=== PATIENT | female | born 1990 | race Caucasian/White ===

== ENCOUNTER → 2017-03-03 | Outpatient (REF) | payer BC ==
[~2017-03-03] MED LIST: IBUP80TA PO; STUACAP PO; TYLE167L PO
[2017-03-03 13:16] LABS: MEAN CORPUSCULAR HEMOGLOBIN 28.9 pg (27.0-33.0); MEAN CORPUSCULAR HGB CONC 33.6 g/dl (32.0-36.5); MEAN CORPUSCULAR VOLUME 86.1 fl (80.0-96.0); PLATELET COUNT, AUTOMATED 265 10^3/uL (150-450); RED CELL DISTRIBUTION WIDTH 13.2 % (11.5-14.5); WHITE BLOOD COUNT 10.3 10^3/uL (4.0-10.0)
[2017-03-03 13:55] LABS: HCG, SERUM QUANTITATIVE 140501 MIU/ML
[2017-03-04 10:32] LABS: HBsAg Prenatal NEGATIVE (NEGATIVE)
== END ==
LOC: M LAB REF 12:42
PROVIDERS: ATTEND Obstetrics & Gynecology
DX: O36.80X0 Pregnancy with inconclusive fetal viability, not applicable or unspecified (principal)

== ENCOUNTER → 2017-07-19 | Outpatient (CLI) | payer BC ==
[2017-07-19 11:43] LABS: HEMOGLOBIN 8.9 g/dl (12.0-16.0); MEAN CORPUSCULAR HEMOGLOBIN 24.6 pg (27.0-33.0); MEAN CORPUSCULAR HGB CONC 30.7 g/dl (32.0-36.5); MEAN CORPUSCULAR VOLUME 80.1 fl (80.0-96.0); PLATELET COUNT, AUTOMATED 325 10^3/uL (150-450); RED BLOOD COUNT 3.62 10^6/uL (4.00-5.40); RED CELL DISTRIBUTION WIDTH 14.2 % (11.5-14.5); WHITE BLOOD COUNT 11.4 10^3/uL (4.0-10.0)
[2017-07-19 12:12] LABS: GLUCOSE CHALLENGE TEST 1 HOUR 142 MG/DL (LESS THAN 140)
== END ==
LOC: M LAB 10:01
DX: O30.042 Twin pregnancy, dichorionic/diamniotic, second trimester (principal); Z3A.00 Weeks of gestation of pregnancy not specified
CPT/HCPCS: 82950

== ENCOUNTER → 2017-07-25 | Outpatient (CLI) | payer BC ==
[2017-07-25 09:01] LABS: GLUCOSE, FASTING 81 MG/DL (LESS THAN 95)
[2017-07-25 09:45] LABS: 1 HR GLUCOSE 155 MG/DL (LESS THAN 180)
[2017-07-25 11:29] LABS: 2 HR GLUCOSE 126 MG/DL (LESS THAN 155)
[2017-07-25 12:52] LABS: 3 HR GLUCOSE 122 MG/DL (LESS THAN 140)
== END ==
LOC: M LAB 08:00
DX: O99.810 Abnormal glucose complicating pregnancy (principal)
CPT/HCPCS: 82951

== ENCOUNTER → 2017-08-16 | Outpatient (CLI) | payer BC | LOC: M RAD 10:38 | DX: O30.043 Twin pregnancy, dichorionic/diamniotic, third trimester (principal) | CPT/HCPCS: 76820 ==

== ENCOUNTER → 2017-09-06 | Outpatient (CLI) | payer BC ==
[2017-09-06 15:02] LABS: TOTAL VOLUME, URINE 2300 ML
[2017-09-06 15:12] LABS: HEMATOCRIT 29.3 % (36.0-47.0); MEAN CORPUSCULAR HGB CONC 30.7 g/dl (32.0-36.5); MEAN CORPUSCULAR VOLUME 78.1 fl (80.0-96.0); PLATELET COUNT, AUTOMATED 265 10^3/uL (150-450); RED BLOOD COUNT 3.75 10^6/uL (4.00-5.40); RED CELL DISTRIBUTION WIDTH 17.3 % (11.5-14.5); WHITE BLOOD COUNT 9.1 10^3/uL (4.0-10.0)
[2017-09-06 15:38] LABS: ALT/SGPT 16 U/L (12-78); AST/SGOT 26 U/L (7-37); BILIRUBIN,TOTAL 0.2 MG/DL (0.2-1.0); GLOMERULAR FILTRATION RATE > 60.0 (>60); LDH LACTATE DEHYDROGENASE 141 U/L (84-246); URIC ACID 5.6 MG/DL (2.6-6.0)
[2017-09-06 15:40] LABS: CREATININE 24 HOUR, URINE 1451.3 MG/24HR (600-1800); CREATININE, URINE 63.1 MG/DL; TOTAL PROTEIN 24 HOUR URINE 579.6 MG/24HR (50-150); URINE TOTAL PROTEIN 25.2 MG/DL (0-12)
== END ==
LOC: M LAB 14:43
DX: O30.043 Twin pregnancy, dichorionic/diamniotic, third trimester (principal); R03.0 Elevated blood-pressure reading, without diagnosis of hypertension
CPT/HCPCS: 84460

== ENCOUNTER 2017-09-12 15:37 | Inpatient (IN) | payer BC ==
[~2017-09-12 15:37] MED LIST changes: +BICITRA 30ML SOLN UDC PO; -IBUP80TA PO; -STUACAP PO; -TYLE167L PO
[2017-09-12] MEDS: LR 300 ML IV (16:55)
[2017-09-12 16:58] LABS: HEMOGLOBIN 9.7 g/dl (12.0-15.5); MEAN CORPUSCULAR HEMOGLOBIN 24.4 pg (27.0-33.0); MEAN CORPUSCULAR HGB CONC 31.3 g/dl (32.0-36.5); MEAN CORPUSCULAR VOLUME 78.1 fl (80.0-96.0); PLATELET COUNT, AUTOMATED 244 10^3/uL (150-450); RED BLOOD COUNT 3.97 10^6/uL (4.00-5.40); RED CELL DISTRIBUTION WIDTH 18.7 % (11.5-14.5)
[2017-09-12 17:26] LABS: ALT/SGPT 20 U/L (12-78); AST/SGOT 27 U/L (7-37); BILIRUBIN,TOTAL 0.4 MG/DL (0.2-1.0); CREATININE FOR GFR 0.49 MG/DL (0.55-1.30); GLOMERULAR FILTRATION RATE > 60.0 (>60); LDH LACTATE DEHYDROGENASE 173 U/L (84-246); URIC ACID 5.4 MG/DL (2.6-6.0)
[2017-09-12] MEDS: LR 1,000 ML IV ×3 (18:31→21:15)
[2017-09-12] MEDS: ERYTHROMYCIN LACTOBIONATE INJ 500 MG in NS 250 ML IV (19:20)
[2017-09-12] MEDS ORDERED: MORPHINE PRES-FREE INJ 10 MG/10 ML VIAL (J2274) As Ordered (19:34)
[2017-09-12] MEDS ORDERED: OXYTOCIN INJ 10 UNITS/ML VIAL (J2590) As Ordered ×2 (19:37)
[2017-09-12] MEDS ORDERED: ONDANSETRON 4MG/2ML VIAL (J2405) As Ordered (19:54)
[2017-09-12] MEDS ORDERED: METOCLOPRAMIDE INJ 10MG/2ML VIAL (J2765) IV ×2 (20:06→21:15)
[2017-09-12] MEDS ORDERED: NALOXONE INJ 0.4 MG/1 ML VIAL (J2310) IV ×2 (20:06)
[2017-09-12] MEDS ORDERED: ONDANSETRON 4MG/2ML VIAL (J2405) IV ×2 (20:06→21:15)
[2017-09-12] MEDS ORDERED: NALBUPHINE HCL 10 MG/ML AMP (J2300) IV (20:06)
[2017-09-12] MEDS ORDERED: dexameTHASONE 4 MG/ML 1ML VIAL (J1100) As Ordered (20:12)
[2017-09-12] MEDS ORDERED: PHENYLephrine HCL 500 MCG/5 ML (100MCG/ML) SYRINGE (J2370) As Ordered (20:12)
[2017-09-12] MEDS ORDERED: KETOROLAC 60 MG/2 ML VIAL (J1885) As Ordered (20:24)
[2017-09-12 20:56] LABS: CORD GAS ABE A -2.9; CORD GAS HCO3 A 24.4 MEQ/L; CORD GAS O2 SAT A < 15.0 %; CORD GAS PCO2 A 51.5 mmHg; CORD GAS PH A 7.294 UNITS; CORD GAS PO2 A 10.2 mmHg
[2017-09-12 20:58] LABS: CORD GAS ABE V -3.2; CORD GAS HCO3 V 22.2 MEQ/L; CORD GAS O2 SAT V 42.1 %; CORD GAS PCO2 V 41.2 mmHg; CORD GAS PO2 V 17.9 mmHg; CORD GAS SBC V 20.4 MEQ/L; CORD GAS TCO2 V 23.5 MEQ/L
[2017-09-12] MEDS: KETOROLAC 30 MG/ML VIAL (J1885) IV ×2 (21:00→23:02)
[2017-09-12] MEDS ORDERED: DOCUSATE SODIUM 100 MG CAP PO (21:00)
[2017-09-12 21:04] LABS: CORD GAS ABE V -4.8; CORD GAS HCO3 V 20.9 MEQ/L; CORD GAS PCO2 V 41.1 mmHg; CORD GAS PH V 7.324 UNITS; CORD GAS TCO2 V 22.2 MEQ/L
[2017-09-12 21:09] LABS: CORD GAS ABE A -3.7; CORD GAS HCO3 A 23.3 MEQ/L; CORD GAS O2 SAT A 17.6 %; CORD GAS PCO2 A 49.1 mmHg; CORD GAS PH A 7.295 UNITS; CORD GAS PO2 A 12.6 mmHg; CORD GAS SBC A 19.3 MEQ/L; CORD GAS TCO2 A 24.9 MEQ/L
[2017-09-12] MEDS ORDERED: fentaNYL 100 MCG/2 ML INJECTION (J3010) IV (21:15)
[2017-09-13] MEDS: KETOROLAC 30 MG/ML VIAL (J1885) IV ×3 (02:56→15:00)
[2017-09-13] MEDS: LR 1,000 ML IV ×2 (04:54→12:54)
[2017-09-13] MEDS: PRENATAL VITAMINS CHEWABLE TABLET PO (09:06)
[2017-09-13 09:54] LABS: HEMATOCRIT 28.4 % (36.0-47.0); HEMOGLOBIN 8.9 g/dl (12.0-15.5); MEAN CORPUSCULAR HEMOGLOBIN 24.4 pg (27.0-33.0); MEAN CORPUSCULAR HGB CONC 31.3 g/dl (32.0-36.5); MEAN CORPUSCULAR VOLUME 77.8 fl (80.0-96.0); PLATELET COUNT, AUTOMATED 260 10^3/uL (150-450); RED BLOOD COUNT 3.65 10^6/uL (4.00-5.40); RED CELL DISTRIBUTION WIDTH 18.6 % (11.5-14.5); WHITE BLOOD COUNT 16.7 10^3/uL (4.0-10.0)
[2017-09-13] MEDS: MEASLES,MUMPS,RUBELLA VACCINE INJ (MMR-II) (90707) SC (15:23)
[2017-09-13] MEDS: RHOGAM 300 MCG (1500 IU) INJ (J2790) IM (15:23)
[2017-09-13] MEDS: PERCOCET 5MG/325MG TAB PO (23:09)
[2017-09-13] MEDS: IBUPROFEN 800 MG TAB PO (23:09)
[2017-09-14] MEDS: IBUPROFEN 800 MG TAB PO ×3 (06:30→23:16)
[2017-09-14] MEDS: PRENATAL VITAMINS CHEWABLE TABLET PO (08:15)
[2017-09-14] MEDS: PERCOCET 5MG/325MG TAB PO ×3 (08:45→23:17)
[2017-09-15] MEDS: PERCOCET 5MG/325MG TAB PO ×2 (06:13→16:14)
[2017-09-15] MEDS: IBUPROFEN 800 MG TAB PO ×2 (06:14→16:10)
[2017-09-15] MEDS: PRENATAL VITAMINS CHEWABLE TABLET PO (09:00)
== END 2017-09-15 18:20 | disposition home or self-care (01) | DRG 540 ==
LOC: M LDI 15:37 → M OBS 22:41
PROC: 10D00Z1 Extraction of Products of Conception, Low, Open Approach (ICD-10-PCS; principal; 2017-09-12 19:54)
DX: O14.03 Mild to moderate pre-eclampsia, third trimester (principal); O60.14X1 Preterm labor third trimester with preterm delivery third trimester, fetus 1; O60.14X2 Preterm labor third trimester with preterm delivery third trimester, fetus 2; Z37.2 Twins, both liveborn; O30.043 Twin pregnancy, dichorionic/diamniotic, third trimester; Z3A.35 35 weeks gestation of pregnancy; O69.81X0 Labor and delivery complicated by cord around neck, without compression, not applicable or unspecified

== ENCOUNTER → 2018-02-04 | Outpatient (REF) | payer BC | LOC: M LAB REF 10:41 | DX: J03.90 Acute tonsillitis, unspecified (principal) | CPT/HCPCS: 87081 ==

== ENCOUNTER → 2022-01-04 | Outpatient (CLI) | payer OTHER ==
[~2022-01-04] MED LIST changes: -BICITRA 30ML SOLN UDC PO; +IBUP-1114 PO; +IBUP80TA PO; +OXYC1TAB23 PO; +PRENTAB9 PO; +STUACAP PO; +TUMS500C PO; +TYLE167L PO; +ZANTTAB9 PO
== END ==
LOC: M WHC 09:09
PROVIDERS: ATTEND Nurse Practitioner Family
DX: K80.20 Calculus of gallbladder without cholecystitis without obstruction (principal)

== ENCOUNTER → 2022-01-21 | Outpatient (CLI) | payer OTHER ==
[~2022-01-21] MED LIST changes: +E-Z-GAS II EFFERVESCENT PACKET (SODIUM BICARB./CITRIC ACID/SIMETHICONE) As Ordered ONE; +E-Z-HD 98% w/w 340GM SUSP BTL As Ordered ONE; +E-Z-PAQUE 96% w/w SUSP 176GM BTL As Ordered ONE
== END ==
LOC: M RAD 08:01
PROVIDERS: ATTEND Nurse Practitioner Family
DX: K21.9 Gastro-esophageal reflux disease without esophagitis (principal); R10.10 Upper abdominal pain, unspecified